=== PATIENT | male | born 1980 | race Caucasian/White ===

== ENCOUNTER 2022-04-02 18:03 | Emergency (ER) | payer OTHER ==
[2022-04-02] MEDS ORDERED: CEPHALEXIN500 M2 PO (18:58)
[2022-04-02 19:11] VITALS: BP 121/86
== END 2022-04-02 19:11 | disposition home or self-care (01) ==
LOC: ED 18:03
DX: S61.412A Laceration without foreign body of left hand, initial encounter (principal); Z23 Encounter for immunization; Z28.310 Unvaccinated for COVID-19; W26.0XXA Contact with knife, initial encounter
CPT/HCPCS: 90715

== ENCOUNTER 2024-03-14 12:41 | Emergency (ER) | payer OTHER ==
[~2024-03-14] VITALS: Ht 180.3 cm; Wt 74.5 kg
[~2024-03-14 12:41] MED LIST: CEPHALEXIN500 M2 PO
[2024-03-14 13:27] LABS: BASO # 0.02 K/mm3 (0.02-0.10); EOS # 0.18 K/mm3 (0.04-0.40); EOS % 2.4 % (0.0-4.0); HEMATOCRIT 47.8 % (42.0-52.0); HEMOGLOBIN 16.8 g/dL (13.5-18.0); MEAN CELL VOLUME 96 fl (78-100); MEAN CORPUSCULAR HEMOGLOBIN 34 pg (27-31); MEAN CORPUSCULAR HGB CONC 35 g/dL (33-37); MONO # 0.59 K/mm3 (0.20-0.80); PLATELET COUNT 168 K/mm3 (130-400); RED BLOOD COUNT 4.96 M/mm3 (4.20-5.60); RED CELL DISTRIBUTION WIDTH 12.6 % (11.5-14.5); WHITE BLOOD COUNT 7.5 K/mm3 (4.8-10.8)
[2024-03-14 13:36] LABS: ALBUMIN 4.4 g/dL (3.5-5.0); SODIUM 139 mmol/L (136-145)
[2024-03-14 13:37] LABS: CALCIUM 9.4 mg/dL (8.3-10.5)
[2024-03-14 13:38] LABS: GLUCOSE 89 mg/dL (75-110); TOTAL PROTEIN 6.9 g/dL (6.4-8.3)
[2024-03-14 13:39] LABS: CARBON DIOXIDE 25 mmol/L (22-29)
[2024-03-14 13:40] LABS: TOTAL BILIRUBIN 0.5 mg/dL (0.2-1.2)
[2024-03-14 13:43] LABS: AST-SGOT 14 U/L (5-34)
[2024-03-14 13:45] LABS: ALT/SGPT 13 U/L (0-55)
[2024-03-14] MEDS ORDERED: VALACYCLOVIR500 MG PO (15:30)
[2024-03-14] MEDS ORDERED: predniSONE 20 MG TAB PO ONE (15:30)
[2024-03-14] MEDS ORDERED: PREDNISONE20 M1 PO (15:30)
[2024-03-14 15:44] VITALS: BP 114/80
== END 2024-03-14 15:38 | disposition home or self-care (01) ==
LOC: ED 12:41
PROVIDERS: Family Medicine
DX: G51.0 Bell's palsy (principal); F17.210 Nicotine dependence, cigarettes, uncomplicated
CPT/HCPCS: J7512